=== PATIENT | female | born 1945 | race Caucasian/White ===

== ENCOUNTER 2020-11-28 18:45 | Inpatient (IN) | payer MEDICAID ==
[~2020-11-28] VITALS: Ht 152.4 cm; Wt 55.9 kg
[2020-11-28] MEDS ORDERED: SODIUM CHLORIDE 0.9% 1,000 ML IV ONE (19:15)
[2020-11-28 20:24] LABS: BASOPHILS % 0.5 % (0.0-2.0); EOSINOPHILS % 1.4 % (0.0-5.0); HEMATOCRIT. 38.8 % (36.0-48.0); HEMOGLOBIN. 13.2 g/dL (12.0-16.0); LYMPHOCYTES % 21.9 % (20.0-50.0); MEAN CORPUSCULAR HEMOGLOBIN 32.2 pg (28.0-32.0); MEAN CORPUSCULAR VOLUME 94.2 fL (81.0-99.0); MONOCYTES % 7.7 % (2.0-8.0); NEUTROPHILS % 68.5 % (40.0-76.0); PLATELET 379 x1000/uL (130-400); RED BLOOD CELL COUNT 4.12 mill/uL (4.2-5.4); RED CELL DISTRIBUTION WIDTH 13.2 % (11.6-14.6)
[2020-11-28 20:27] LABS: CHLORIDE 102 mEq/L (98-107)
[2020-11-28 20:30] LABS: PROTHROMBIN TIME 10.6 sec (9.6-11.0)
[2020-11-28 20:32] LABS: ETHANOL BLOOD < 10 mg/dL
[2020-11-28 20:35] LABS: LDL CHOLESTEROL 136 mg/dL (5-100)
[2020-11-28 20:53] LABS: CLARITY URINE CLEAR (CLEAR); COLOR URINE YELLOW (YELLOW); KETONES URINE NEGATIVE (NEGATIVE); LEUKOCYTE ESTERASE URINE 2+ (NEGATIVE); NITRITE URINE POSITIVE (NEGATIVE); OCCULT BLOOD URINE TRACE (NEGATIVE); PROTEIN URINE 1+ (NEGATIVE); SPECIFIC GRAVITY URINE 1.027 (1.005-1.030); UROBILINOGEN URINE 0.2 E.U./dL (0.2-1.0)
[2020-11-28] MEDS ORDERED: ASPIRIN 325MG EC TABLET PO ONE (21:00)
[2020-11-28 21:08] LABS: *AMPHETAMINES SCREEN URINE NEGATIVE (NEGATIVE); *BARBITURATES SCREEN URINE NEGATIVE (NEGATIVE); *BENZODIAZEPINES SCREEN URINE NEGATIVE (NEGATIVE); *COCAINE SCREEN URINE NEGATIVE (NEGATIVE)
[2020-11-28 21:09] LABS: CANNABINOID URINE SCREEN NEGATIVE (NEGATIVE); METHADONE URINE SCREEN NEGATIVE (NEGATIVE); OPIATES URINE SCREEN NEGATIVE (NEGATIVE); PHENCYCLIDINE URINE SCREEN NEGATIVE (NEGATIVE)
[2020-11-28] MEDS ORDERED: ASPIRIN 325MG TABLET PO ONE (21:30)
[2020-11-28] MEDS ORDERED: IOHEXOL-350 100 ML BOTTLE ONE (23:30)
[2020-11-29] MEDS ORDERED: CEFTRIAXONE 1 G PREMIX 50 ML IV SCH (10:15)
[2020-11-29] MEDS ORDERED: ACETAMINOPHEN 325MG TABLET PO PRN (10:15)
[2020-11-29] MEDS ORDERED: AZITHROMYCIN 500 MG TABLET PO NR (10:15)
[2020-11-29] MEDS ORDERED: DEXTROSE 50% WATER 50ML SYRINGE IV PRN (10:15)
[2020-11-29] MEDS ORDERED: ONDANSETRON HCL 4MG/2ML INJ IV PRN (10:15)
[2020-11-29] MEDS: ENOXAPARIN 30MG/0.3ML SYR SUBCUT SCH (11:00)
[2020-11-29] MEDS: BLOOD SUGAR DIAGNOSTIC STRIP TEST SCH ×3 (12:02→21:30)
[2020-11-29] MEDS ORDERED: CEFTRIAXONE SODIUM 1 G/VIAL ONE (12:06)
[2020-11-29] MEDS: CEFTRIAXONE 1,000 MG in DEXTROSE 5% WATER 50 ML IV SCH (12:35)
[2020-11-29] MEDS: INSULIN LISPRO 100 UNITS/ML SUBCUT SCH ×3 (12:36→21:00)
[2020-11-29 16:01] VITALS: BP 171/80
[2020-11-29 18:00] VITALS: BP 182/65
[2020-11-29] MEDS: CLONIDINE 0.1MG TABLET PO PRN (18:40)
[2020-11-29 18:43] VITALS: BP 155/101
[2020-11-29 20:00] VITALS: BP 132/56
[2020-11-29] MEDS: ATORVASTATIN CALCIUM 40MG TABLET PO SCH (21:31)
[2020-11-29 22:00] VITALS: BP 115/57
[2020-11-30] VITALS (13 sets, daily range): BP systolic 109–173; BP diastolic 53–109
[2020-11-30] MEDS: BLOOD SUGAR DIAGNOSTIC STRIP TEST SCH ×4 (06:11→20:48)
[2020-11-30] MEDS: INSULIN LISPRO 100 UNITS/ML SUBCUT SCH ×4 (07:20→21:00)
[2020-11-30] MEDS: ASPIRIN 81MG TABLET PO SCH (08:14)
[2020-11-30] MEDS: AZITHROMYCIN 250 MG TABLET PO SCH (08:14)
[2020-11-30] MEDS: ENOXAPARIN 30MG/0.3ML SYR SUBCUT SCH (08:15)
[2020-11-30] MEDS: CEFTRIAXONE 1,000 MG in DEXTROSE 5% WATER 50 ML IV SCH (11:59)
[2020-11-30] MEDS: CLONIDINE 0.1MG TABLET PO PRN (15:49)
[2020-11-30 16:40] LABS: HEMATOCRIT 38.1 % (36.0-48.0); HEMOGLOBIN 12.7 g/dL (12.0-16.0); MEAN CORPUSCULAR HEMOGLOBIN 31.4 pg (28.0-32.0); MEAN CORPUSCULAR VOLUME 94.2 fL (81.0-99.0); PLATELET 372 x1000/uL (130-400); RED BLOOD CELL COUNT 4.05 mill/uL (4.2-5.4); RED CELL DISTRIBUTION WIDTH 13.6 % (11.6-14.6)
[2020-11-30 16:52] LABS: CHLORIDE 105 mEq/L (98-107)
[2020-11-30] MEDS ORDERED: AMLODIPINE 5MG TABLET PO NR (16:53)
[2020-11-30] MEDS: ATORVASTATIN CALCIUM 40MG TABLET PO SCH (20:48)
[2020-12-01 02:00] VITALS: BP 116/49
[2020-12-01] MEDS: BLOOD SUGAR DIAGNOSTIC STRIP TEST SCH ×4 (06:16→21:44)
[2020-12-01 06:38] LABS: BASOPHILS % 0.7 % (0.0-2.0); EOSINOPHILS % 2.7 % (0.0-5.0); HEMATOCRIT. 38.4 % (36.0-48.0); LYMPHOCYTES % 31.9 % (20.0-50.0); MEAN CORPUSCULAR HEMOGLOBIN 31.9 pg (28.0-32.0); MEAN CORPUSCULAR VOLUME 94.4 fL (81.0-99.0); MEAN PLATELET VOLUME 9.6 fl (7.4-10.4); MONOCYTES % 7.3 % (2.0-8.0); NEUTROPHILS % 57.4 % (40.0-76.0); PLATELET 381 x1000/uL (130-400); RED BLOOD CELL COUNT 4.07 mill/uL (4.2-5.4); RED CELL DISTRIBUTION WIDTH 13.2 % (11.6-14.6)
[2020-12-01 06:49] LABS: CHLORIDE 106 mEq/L (98-107)
[2020-12-01] MEDS: INSULIN LISPRO 100 UNITS/ML SUBCUT SCH ×4 (06:53→21:00)
[2020-12-01] MEDS: ASPIRIN 81MG TABLET PO SCH (08:48)
[2020-12-01] MEDS: AZITHROMYCIN 250 MG TABLET PO SCH (08:48)
[2020-12-01] MEDS: ENOXAPARIN 30MG/0.3ML SYR SUBCUT SCH (08:48)
[2020-12-01] MEDS: AMLODIPINE 5MG TABLET PO SCH (08:49)
[2020-12-01 12:00] VITALS: BP 155/79
[2020-12-01] MEDS: CEFTRIAXONE 1,000 MG in DEXTROSE 5% WATER 50 ML IV SCH (12:37)
[2020-12-01 18:00] VITALS: BP 158/70
[2020-12-01 20:00] VITALS: BP 143/66
[2020-12-01] MEDS ORDERED: ATORVASTATIN CALCIUM 10MG TABLET PO SCH (21:00)
[2020-12-02] VITALS: BP 145/61
[2020-12-02 06:00] VITALS: BP 120/61
[2020-12-02] MEDS: BLOOD SUGAR DIAGNOSTIC STRIP TEST SCH ×3 (06:43→16:47)
[2020-12-02 07:30] VITALS: BP 185/87
[2020-12-02 07:43] LABS: BASOPHILS % 0.5 % (0.0-2.0); EOSINOPHILS % 3.5 % (0.0-5.0); HEMATOCRIT. 36.6 % (36.0-48.0); HEMOGLOBIN. 12.5 g/dL (12.0-16.0); MEAN CORPUSCULAR HEMOGLOBIN 32.2 pg (28.0-32.0); MEAN CORPUSCULAR VOLUME 93.8 fL (81.0-99.0); MEAN PLATELET VOLUME 9.6 fl (7.4-10.4); MONOCYTES % 7.3 % (2.0-8.0); NEUTROPHILS % 53.7 % (40.0-76.0); PLATELET 371 x1000/uL (130-400)
[2020-12-02 07:47] LABS: CHLORIDE 106 mEq/L (98-107)
[2020-12-02] MEDS: ASPIRIN 81MG TABLET PO SCH (08:54)
[2020-12-02] MEDS: AMLODIPINE 5MG TABLET PO SCH (08:54)
[2020-12-02] MEDS: AZITHROMYCIN 250 MG TABLET PO SCH (08:54)
[2020-12-02] MEDS: INSULIN LISPRO 100 UNITS/ML SUBCUT SCH ×2 (08:55→12:38)
[2020-12-02] MEDS: ENOXAPARIN 30MG/0.3ML SYR SUBCUT SCH (08:59)
[2020-12-02] MEDS: CEFTRIAXONE 1,000 MG in DEXTROSE 5% WATER 50 ML IV SCH (11:44)
[2020-12-02 12:00] VITALS: BP 137/63
[2020-12-02 14:59] VITALS: BP 129/76
[2020-12-02 16:49] VITALS: BP 137/67
[2020-12-02] MEDS ORDERED: AMLODIPINE 5MG TABLET PO SCH (21:00)
[2020-12-03] MEDS ORDERED: ENOXAPARIN 40MG/0.4ML SYR SUBCUT SCH (09:00)
== END 2020-12-02 16:45 | disposition home or self-care (01) | DRG 45 ==
LOC: ER 18:45 → MICUSO 21:17 → 3WST 11-29 09:58 → MICUSO 11-29 11:15 → 3WST 11-29 14:24
PROVIDERS: ADMIT Internal Medicine; ATTEND Internal Medicine
PROC: 4A00X4Z Measurement of Central Nervous Electrical Activity, External Approach (ICD-10-PCS; principal; 2020-12-02)
DX: I63.9 Cerebral infarction, unspecified (principal); N39.0 Urinary tract infection, site not specified; J18.9 Pneumonia, unspecified organism; I10 Essential (primary) hypertension; E78.5 Hyperlipidemia, unspecified; Z20.822 Contact with and (suspected) exposure to COVID-19; E11.65 Type 2 diabetes mellitus with hyperglycemia
CPT/HCPCS: 36415; 70496; 70498; 70551; 71045; 80048; 80053; 80061; 80305; 80320; 81003; 82962; 83721; 83880; 84443; 84484; 85025; 85027; 87426; 93005; 93306; 95816; 97162; 97166; 97530; 99291; J0696; J1650; J1815; J7030; J7040; J7060; Q9967; G0480